=== PATIENT | female | born 1955 | race Caucasian/White ===

== ENCOUNTER 2019-06-12 12:10 | Emergency (ER) | payer OTHER ==
[~2019-06-12] VITALS: Ht 162.6 cm; Wt 64.8 kg
[2019-06-12 12:13] VITALS: BP 183/83
== END 2019-06-12 14:51 | disposition home or self-care (01) ==
LOC: ED 13:54
DX: R07.89 Other chest pain (principal)
CPT/HCPCS: 36415; 70360; 71045; 80053; 84443; 84484; 85025; 93005; 99284